=== PATIENT | female | born 1965 | race Caucasian/White ===

== ENCOUNTER 2023-06-26 18:43 | Emergency (ER) | payer MEDICARE, SELFPAY ==
[2023-06-26 18:47] VITALS: BP 139/75; PULSE 84; RESP 24; TEMP 36.5; O2SAT 98; BMI 25.0
--- NOTE | 2023-06-26 19:15 | XR_ITS ---
The [address] [address] Patient Name: BROOKLYN CUELLO MRN: [id number] date: 1965 Sex: F Assigned Patient Location: ER Current Patient Location: ER Accession/Order Number: [id number] Exam Date: 06/26/2023 19:19 Report Date: 06/26/2023 20:00 At the request of: NEENA MARKER Procedure: XR chest 2V EXAMINATION: XR chest 2V HISTORY: Cough COMPARISON: None. TECHNIQUE: PA and lateral chest x-rays FINDINGS: The lung parenchyma is free of consolidation or infiltrate. No pneumothorax or pleural effusion. The cardiac, mediastinal and hilar contours are normal. The visualized osseous structures exhibit no gross abnormality. XR/XR chest 2V IMPRESSION: No acute cardiopulmonary abnormality. Electronically authenticated by: PHYLLIS BUSH Date: 06/26/2023 20:00
--- NOTE | 2023-06-26 19:36 | ED.URI1 ---
HPI - URI/Sore Throat General Chief Complaint: Upper Respiratory Infection Stated Complaint: URTI Time Seen by Provider: 06/26/23 19:05 Source: patient Limitations: no limitations and other Limitations comment: Pt is very poor historian History of Present Illness HPI Narrative: This 57-year-old female with a former history of back or use presents for evaluation of one month or more of a cough with productive white phlegm. She denies any chest pain. She has not had a fever. She was seen at urgent care last week and had a negative Covid test and was prescribed Zithromax and steroids. She states she has been taking [id number] cough medication without relief. She has not had any hemoptysis. She has no abdominal pain. She has no lower extremity pain or swelling. She states that she has inhalers that she uses but does not know the name of them. Related Data Home Medications Medication Instructions Recorded Confirmed lancets 33 gauge (OneTouch Delica 06/26/23 06/26/23 Plus Lancet) loperamide 2 mg capsule 2 mg PO DAILY 06/26/23 06/26/23 losartan 25 mg tablet 25 mg PO DAILY 06/26/23 06/26/23 metformin 1,000 mg tablet 1,000 mg PO BID 06/26/23 06/26/23 metformin 500 mg tablet 500 mg PO BID 06/26/23 06/26/23 pantoprazole 40 mg tablet,delayed 40 mg PO BID 06/26/23 06/26/23 release pravastatin 20 mg tablet 20 mg PO DAILY 06/26/23 06/26/23 pravastatin 80 mg tablet 80 mg PO DAILY 06/26/23 06/26/23 sitagliptin phosphate 100 mg 100 mg PO DAILY 06/26/23 06/26/23 tablet (Januvia) Allergies Allergy/AdvReac Type Severity Reaction Status Date / Time No Known Drug Allergies Allergy Verified 06/26/23 18:54 Review of Systems ROS Status of ROS 10 or more systems reviewed and unremarkable except as noted in history and below Exam Narrative Exam Narrative: Nurses note and vital signs reviewed and patient is not hypoxic with pulse ox of 98 percent on room air General: Non toxic overweight adult female, no resp distress Skin: Warm, dry, no pallor noted. There is no rash noted. Head: Normocephalic, atraumatic Eye: Normal conjunctiva, no drainage, EOMI. PERRL Ears, Nose, Mouth, and Throat: oral mucosa is moist, No pharyngeal erythema or notable postnasal drip. Nares patent. Mouth without vesicles. Cardiovascular: Regular Rate and Rhythm S1S2, No murmurs rubs or gallops Respiratory: Patient is in no distress, no accessory muscle use, lungs are clear to auscultation, no wheezing, rales or rhonchi, Intermittent bronchospastic cough appreciated Back: non-tender, no CVA tenderness bilaterally to percussion. GI: Normal bowel sounds, no tenderness to palpation, no masses appreciated. No rebound, guarding, or rigidity noted. Musculoskeletal: The patient has no evidence of calf tenderness, no pitting edema, symmetrical pulses noted bilaterally Neurological: A&O x4, normal speech, No focal deficits Psychiatric: Cooperative Constitutional Vital Signs, click to edit/add: Last Vital Signs Temp 97.7 F 06/26/23 18:47 Pulse 69 06/26/23 20:34 Resp 20 06/26/23 20:13 BP 136/89 06/26/23 20:34 Pulse Ox 97 06/26/23 20:34 O2 Del Method Room Air 06/26/23 20:05 Course Vital Signs Vital signs: Vital Signs Temperature 97.7 F 06/26/23 18:47 Pulse Rate 84 06/26/23 18:47 Respiratory Rate 24 06/26/23 18:47 Blood Pressure 139/75 06/26/23 18:47 Pulse Oximetry 98 06/26/23 18:47 Temperature 97.7 F 06/26/23 18:47 Pulse Rate 69 06/26/23 20:34 Respiratory Rate 20 06/26/23 20:13 Blood Pressure 136/89 06/26/23 20:34 Pulse Oximetry 97 06/26/23 20:34 Oxygen Delivery Method Room Air 06/26/23 20:05 MDM - URI/Sore Throat MDM Narrative Medical decision making narrative: This 57 year old female with a history of asthma presents for evaluation and approximate one month of coughing. She has a cough with white phlegm. She has no chest pain, no fever. Symptoms started with upper respiratory symptoms approximately a month ago. She recently tested negative for Covid 19 and was on steroids and Zithromax. An emergency department she has stable vital signs with a normal pulse ox. Chest x-ray is clear. Lungs are clear. She was given a DuoNeb and states she feels somewhat better after that. She does not know if she has a nebulizer machine at home. She does have inhalers. She was given a dose of Tylenol codeine will be discharged home with prescription for Bromfed-DM. I did explain to her that there is probably nothing infectious about her cough. She does not have pneumonia. She may have viral bronchitis but has already been on antibiotics and no additional antibiotics are indicated. I explained that the cough after a viral upper respiratory infection typically last for 6-8 weeks. I encouraged to drink plenty of fluids and stay active and using cough medication as prescribed. Medical Records Medical records narrative: [place] [address] XRay Report Signed Patient: BROOKLYN CUELLO MR#: [id number] : 1965 Acct:[id number] Age/Sex: 57 / F ADM Date: 06/26/23 Loc: ER Attending Dr: Ordering Physician: Neena Rollins Date of Service: 06/26/23 Procedure(s): XR chest 2V Accession Number(s): [id number] cc: Neena Rollins; Natanael Echols ~ The [address] [address] Patient Name: BROOKLYN CUELLO MRN: [id number] date: 1965 Sex: F Assigned Patient Location: ER Current Patient Location: ER Accession/Order Number: [id number] Exam Date: 06/26/2023 19:19 Report Date: 06/26/2023 20:00 At the request of: NEENA ROLLINS Procedure: XR chest 2V EXAMINATION: XR chest 2V HISTORY: Cough COMPARISON: None. TECHNIQUE: PA and lateral chest x-rays FINDINGS: The lung parenchyma is free of consolidation or infiltrate. No pneumothorax or pleural effusion. The cardiac, mediastinal and hilar contours are normal. The visualized osseous structures exhibit no gross abnormality. XR/XR chest 2V IMPRESSION: No acute cardiopulmonary abnormality. Discharge Plan Discharge Chief Complaint: Upper Respiratory Infection Clinical Impression: Bronchospasm, Viral infection Patient Disposition: Home, Self-Care Time of Disposition Decision: 20:29 Condition: Good Prescriptions / Home Meds: No Action loperamide 2 mg capsule 2 mg PO DAILY (DME) lancets [OneTouch Delica Plus Lancet] 33 gauge misc MISCELLANEOUS losartan 25 mg tablet 25 mg PO DAILY metformin 1,000 mg tablet 1,000 mg PO BID metformin 500 mg tablet 500 mg PO BID pantoprazole 40 mg tablet,delayed release (DR/EC) 40 mg PO BID pravastatin 20 mg tablet 20 mg PO DAILY pravastatin 80 mg tablet 80 mg PO DAILY Januvia 100 mg tablet 100 mg PO DAILY Instructions: Viral Syndrome (ED), Bronchospasm (ED) Stand Alone Forms: Portal Instructions Referrals: Natanael Echols [Primary Care Provider] - 1 week Discharge Date/Time: 06/26/23 20:41
[2023-06-26 20:05] VITALS: PULSE 78; RESP 20; O2SAT 96
[2023-06-26] MEDS: IPRATROPIUM/ALBUTEROL SULFATE 3 ML AMPUL.NEB IH (20:07)
[2023-06-26 20:13] VITALS: PULSE 75; RESP 20; O2SAT 100
[2023-06-26 20:34] VITALS: BP 136/89; PULSE 69; O2SAT 97
[2023-06-26] MEDS: ACETAMINOPHEN 120 MG WITH CODEINE 12 MG/ 5 ML SOLUTION PO (20:34)
== END 2023-06-26 20:41 | disposition home or self-care (01) ==
PROVIDERS: Emergency Provider Emergency Medicine; PCP Physician Assistant
DX: J98.01 Acute bronchospasm (principal); B34.9 Viral infection, unspecified; Z79.84 Long term (current) use of oral hypoglycemic drugs; Z79.899 Other long term (current) drug therapy
CPT/HCPCS: 71046; 94640; 99283